=== PATIENT | female | born 1990 | race Caucasian/White ===

== ENCOUNTER 2017-09-30 21:14 | Emergency (ER) | payer OTHER ==
[~2017-09-30] VITALS: Ht 167.6 cm; Wt 61.2 kg
[2017-10-01] MEDS ORDERED: ZOFRAN ODT4 MG PO (04:31)
[2017-10-01] MEDS ORDERED: PEPCID40 MG PO (04:31)
== END 2017-10-01 04:40 | disposition home or self-care (01) ==
LOC: ER 21:14
DX: O21.0 Mild hyperemesis gravidarum (principal); Z34.01 Encounter for supervision of normal first pregnancy, first trimester

== ENCOUNTER 2017-10-12 20:51 | Emergency (ER) | payer OTHER ==
[~2017-10-12] VITALS: Ht 162.6 cm; Wt 55.8 kg
[~2017-10-12 20:51] MED LIST: PEPCID40 MG PO; ZOFRAN ODT4 MG PO
== END 2017-10-13 00:01 | disposition home or self-care (01) ==
LOC: ER 20:51
DX: O21.0 Mild hyperemesis gravidarum (principal); Z34.01 Encounter for supervision of normal first pregnancy, first trimester

== ENCOUNTER 2021-05-03 13:28 | Outpatient (CLI) | payer OTHER | END 2021-05-03 14:40 | disposition home or self-care (01) | LOC: PRENATAL 13:28 | PROVIDERS: ATTEND Obstetrics & Gynecology Maternal & Fetal Medicine | DX: O35.0XX0 Maternal care for (suspected) central nervous system malformation in fetus, not applicable or unspecified (principal); O35.3XX0 Maternal care for (suspected) damage to fetus from viral disease in mother, not applicable or unspecified ==

== ENCOUNTER 2021-07-18 01:18 | Inpatient (IN) | payer OTHER ==
[~2021-07-18] VITALS: Ht 152.4 cm; Wt 73.9 kg
[2021-07-18] MEDS ORDERED: PRENATABS RX T1 EACH PO (09:47)
== END 2021-07-20 13:08 | disposition home or self-care (01) | DRG 807 ==
LOC: LDR 01:18 → OB/GYN 10:35 → SURG-SUITE 10:45
PROVIDERS: ADMIT Obstetrics & Gynecology; ATTEND Obstetrics & Gynecology
PROC: 10E0XZZ Delivery of Products of Conception, External Approach (ICD-10-PCS; principal; 2021-07-18)
PROC: 0HQ9XZZ Repair Perineum Skin, External Approach (ICD-10-PCS; 2021-07-18)
PROC: 4A1HXCZ Monitoring of Products of Conception, Cardiac Rate, External Approach (ICD-10-PCS; 2021-07-18)
DX: O70.1 Second degree perineal laceration during delivery (principal); Z37.0 Single live birth; Z3A.38 38 weeks gestation of pregnancy; Z20.822 Contact with and (suspected) exposure to COVID-19